=== PATIENT | male | born 1965 | race Caucasian/White ===

== ENCOUNTER 2016-11-21 12:05 | Day surgery (SDC) ==
[2016-11-21 12:25] LABS: MANUAL DIFF NEEDED? NO
[2016-11-21 12:40] LABS: BASO% 0.3 % (0.0-0.8); EOS# 0.16 X1000 (0.0-0.7); EOS% 2.8 % (0.0-10.0); HEMATOCRIT 38.3 % (42.0-52.0); HEMOGLOBIN 13.3 g/dL (14.0-18.0); LYMPH# 1.89 X1000 (1.2-3.4); LYMPH% 32.6 % (20.5-51.1); MCH 30.4 PG (27-31); MCHC 34.7 g/dL (33-37); MCV 87.6 FL (81-99); MONO# 0.89 X1000 (0.11-0.59); MONO% 15.3 % (1.7-9.3); MPV 10.3 FL (7.4-10.4); PLT 229 X1000 (130-400); RBC 4.37 XMIL (4.7-6.1)
[2016-11-21 12:50] LABS: INR 1.04
[2016-11-21] MEDS ORDERED: NS 500 ML ONE (13:49)
== END 2016-11-21 17:00 | disposition home or self-care (01) ==
LOC: LAB 12:05
PROVIDERS: ATTEND Internal Medicine
DX: H65.192 Other acute nonsuppurative otitis media, left ear (principal)
CPT/HCPCS: 36569; 85025; 85610; J7040